=== PATIENT | male | born 1955 | race African-American/Black ===

== ENCOUNTER 2019-07-20 12:29 | Inpatient (IN) | payer MEDICARE, MEDICAID ==
[~2019-07-20] VITALS: Ht 188 cm; Wt 135.2 kg
[~2019-07-20 12:29] MED LIST: ALBU90AE INH; ASPI-1160 PO; LOSA25TA3 PO; METO-385 MT
[2019-07-20] MEDS ORDERED: ACETAMINOPHEN 325MG TABLET PO STA (15:14)
[2019-07-20 16:42] LABS: BASOPHILS % 0.7 % (0.0-2.0); EOSINOPHILS % 4.8 % (0.0-5.0); HEMATOCRIT. 39.4 % (42.0-52.0); HEMOGLOBIN. 13.3 g/dL (14.0-18.0); LYMPHOCYTES % 29.7 % (20.0-50.0); MEAN CORPUSCULAR HEMOGLOBIN 30.4 pg (28.0-32.0); MEAN CORPUSCULAR VOLUME 89.8 fL (80.0-94.0); MEAN PLATELET VOLUME 8.6 fl (7.4-10.4); MONOCYTES % 9.4 % (2.0-8.0); NEUTROPHILS % 55.4 % (40.0-76.0); PLATELET 300 x1000/uL (130-400); RED BLOOD CELL COUNT 4.39 mill/uL (4.7-6.1); RED CELL DISTRIBUTION WIDTH 13.7 % (11.6-14.6)
[2019-07-20 16:43] LABS: CHLORIDE 115 mEq/L (98-107)
[2019-07-20 16:46] LABS: ETHANOL BLOOD < 10 mg/dL
[2019-07-20 16:48] LABS: D-DIMER 0.29 mg/L FEU (<0.50); PARTIAL THROMBOPLASTIN TIME 28.6 sec (23.4-31.0); PROTHROMBIN TIME 10.4 sec (9.6-11.0)
[2019-07-20 16:57] LABS: CLARITY URINE CLEAR (CLEAR); COLOR URINE YELLOW (YELLOW); KETONES URINE NEGATIVE (NEGATIVE); LEUKOCYTE ESTERASE URINE NEGATIVE (NEGATIVE); NITRITE URINE NEGATIVE (NEGATIVE); OCCULT BLOOD URINE 1+ (NEGATIVE); PROTEIN URINE NEGATIVE (NEGATIVE); SPECIFIC GRAVITY URINE 1.007 (1.005-1.030); UROBILINOGEN URINE 0.2 E.U./dL (0.2-1.0)
[2019-07-20] MEDS ORDERED: ASPIRIN 81MG TABLET PO ONE (17:00)
[2019-07-20] MEDS ORDERED: NITROGLYCERIN 0.4MG TABLET SL SL PRN (17:00)
[2019-07-20 17:16] LABS: CANNABINOID URINE SCREEN NEGATIVE (NEGATIVE); PHENCYCLIDINE URINE SCREEN NEGATIVE (NEGATIVE)
[2019-07-20 17:17] LABS: *AMPHETAMINES SCREEN URINE NEGATIVE (NEGATIVE); *BARBITURATES SCREEN URINE NEGATIVE (NEGATIVE); *BENZODIAZEPINES SCREEN URINE NEGATIVE (NEGATIVE); *COCAINE SCREEN URINE PRESUMTIVE POSITIVE (NEGATIVE); METHADONE URINE SCREEN NEGATIVE (NEGATIVE)
[2019-07-20 17:18] LABS: OPIATES URINE SCREEN NEGATIVE (NEGATIVE)
[2019-07-20] MEDS ORDERED: IBUPROFEN 600MG TABLET PO PRN (19:15)
[2019-07-20] MEDS ORDERED: IPRATROPIUM/ALBUTEROL 0.5-3(2.5)MG/3ML NEB HHN PRN (20:45)
[2019-07-20] MEDS ORDERED: ONDANSETRON HCL 4MG/2ML INJ IV PRN (20:45)
[2019-07-20] MEDS ORDERED: GUAIFENESIN 200MG/10ML SUGAR FREE UDC PO PRN (20:45)
[2019-07-20] MEDS ORDERED: ACETAMINOPHEN 325MG TABLET PO PRN (20:45)
[2019-07-20] MEDS ORDERED: DIPHENHYDRAMINE 50MG/ML VIAL IV PRN (20:45)
[2019-07-21] MEDS ORDERED: DEXTROSE 50% WATER 50ML SYRINGE IV PRN (03:45)
[2019-07-21 04:00] VITALS: BP 166/89
[2019-07-21] MEDS: CLONIDINE 0.1MG TABLET PO PRN (04:41)
[2019-07-21] MEDS: BLOOD SUGAR DIAGNOSTIC STRIP TEST SCH ×4 (06:04→21:40)
[2019-07-21] MEDS: INSULIN LISPRO 100 UNITS/ML SUBCUT SCH ×4 (06:57→21:00)
[2019-07-21 07:58] VITALS: BP 135/85
[2019-07-21] MEDS: ENOXAPARIN 30MG/0.3ML SYR SUBCUT SCH ×2 (08:44→21:44)
[2019-07-21 10:22] LABS: BASOPHILS % 0.9 % (0.0-2.0); EOSINOPHILS % 4.9 % (0.0-5.0); HEMATOCRIT. 38.9 % (42.0-52.0); LYMPHOCYTES % 27.6 % (20.0-50.0); MEAN CORPUSCULAR HEMOGLOBIN 30.5 pg (28.0-32.0); MEAN CORPUSCULAR VOLUME 91.2 fL (80.0-94.0); MEAN PLATELET VOLUME 8.8 fl (7.4-10.4); MONOCYTES % 11.3 % (2.0-8.0); NEUTROPHILS % 55.3 % (40.0-76.0); PLATELET 271 x1000/uL (130-400); RED BLOOD CELL COUNT 4.26 mill/uL (4.7-6.1); RED CELL DISTRIBUTION WIDTH 13.8 % (11.6-14.6)
[2019-07-21] MEDS ORDERED: TAMS-11 MT (10:55)
[2019-07-21 12:00] VITALS: BP 140/77
[2019-07-21 12:50] LABS: CHLORIDE 114 mEq/L (98-107)
[2019-07-21 13:01] LABS: LDL CHOLESTEROL 90 mg/dL (5-100)
[2019-07-21 13:05] LABS: HDL CHOLESTEROL 40 mg/dL (40-59)
[2019-07-21 16:00] VITALS: BP 140/77
[2019-07-21 20:00] VITALS: BP 144/84
[2019-07-22] VITALS: BP 138/86
[2019-07-22 04:10] VITALS: BP 144/74
[2019-07-22] MEDS: BLOOD SUGAR DIAGNOSTIC STRIP TEST SCH ×2 (06:56→12:18)
[2019-07-22] MEDS: INSULIN LISPRO 100 UNITS/ML SUBCUT SCH ×2 (06:56→12:15)
[2019-07-22 08:00] VITALS: BP 157/82
[2019-07-22] MEDS: ENOXAPARIN 30MG/0.3ML SYR SUBCUT SCH ×3 (08:45→21:06)
[2019-07-22] MEDS: TAMSULOSIN HCL 0.4MG SR CAPSULE PO SCH (08:45)
[2019-07-22] MEDS: LOSARTAN POTASSIUM 25 MG TABLET PO SCH (08:45)
[2019-07-22] MEDS: ASPIRIN 81MG TABLET PO SCH (08:45)
[2019-07-22 12:00] VITALS: BP 136/89
[2019-07-22] MEDS ORDERED: IPRATROPIUM/ALBUTEROL 0.5-3(2.5)MG/3ML NEB HHN PRN (14:00)
[2019-07-22 15:50] VITALS: BP 154/99
[2019-07-22] MEDS: CLONIDINE 0.1MG TABLET PO PRN (16:47)
[2019-07-22 20:00] VITALS: BP 118/65
[2019-07-23] VITALS: BP 122/54
[2019-07-23 04:00] VITALS: BP 132/56
[2019-07-23] MEDS: IPRATROPIUM/ALBUTEROL 0.5-3(2.5)MG/3ML NEB HHN SCH ×4 (06:27→21:02)
[2019-07-23 08:00] VITALS: BP 154/84
[2019-07-23 08:17] LABS: BASOPHILS % 1.1 % (0.0-2.0); EOSINOPHILS % 4.8 % (0.0-5.0); HEMATOCRIT. 38.1 % (42.0-52.0); HEMOGLOBIN. 12.9 g/dL (14.0-18.0); LYMPHOCYTES % 28.3 % (20.0-50.0); MEAN CORPUSCULAR HEMOGLOBIN 30.3 pg (28.0-32.0); MEAN CORPUSCULAR VOLUME 89.5 fL (80.0-94.0); MEAN PLATELET VOLUME 8.6 fl (7.4-10.4); MONOCYTES % 11.8 % (2.0-8.0); PLATELET 273 x1000/uL (130-400); RED BLOOD CELL COUNT 4.26 mill/uL (4.7-6.1); RED CELL DISTRIBUTION WIDTH 13.6 % (11.6-14.6)
[2019-07-23 08:36] LABS: CHLORIDE 111 mEq/L (98-107)
[2019-07-23] MEDS: ENOXAPARIN 30MG/0.3ML SYR SUBCUT SCH ×3 (09:00→20:32)
[2019-07-23] MEDS: BUDESONIDE 0.5MG/2ML NEB HHN SCH ×3 (09:36→21:01)
[2019-07-23] MEDS: ASPIRIN 81MG TABLET PO SCH (10:29)
[2019-07-23] MEDS: TAMSULOSIN HCL 0.4MG SR CAPSULE PO SCH (10:29)
[2019-07-23] MEDS: LOSARTAN POTASSIUM 25 MG TABLET PO SCH (10:30)
[2019-07-23 12:00] VITALS: BP 166/83
[2019-07-23] MEDS: CLONIDINE 0.1MG TABLET PO PRN (15:54)
[2019-07-23 16:00] VITALS: BP 146/85
[2019-07-23 20:00] VITALS: BP 119/58
[2019-07-24] VITALS: BP 125/64
[2019-07-24 04:00] VITALS: BP 155/85
[2019-07-24 07:03] LABS: BASOPHILS % 0.9 % (0.0-2.0); EOSINOPHILS % 3.3 % (0.0-5.0); HEMATOCRIT. 36.4 % (42.0-52.0); HEMOGLOBIN. 12.5 g/dL (14.0-18.0); MEAN CORPUSCULAR HEMOGLOBIN 30.6 pg (28.0-32.0); MEAN CORPUSCULAR VOLUME 89.4 fL (80.0-94.0); MEAN PLATELET VOLUME 8.7 fl (7.4-10.4); MONOCYTES % 11.9 % (2.0-8.0); NEUTROPHILS % 60.9 % (40.0-76.0); PLATELET 270 x1000/uL (130-400); RED BLOOD CELL COUNT 4.08 mill/uL (4.7-6.1); RED CELL DISTRIBUTION WIDTH 13.6 % (11.6-14.6)
[2019-07-24 07:31] LABS: CHLORIDE 113 mEq/L (98-107)
[2019-07-24 08:00] VITALS: BP 152/77
[2019-07-24] MEDS: IPRATROPIUM/ALBUTEROL 0.5-3(2.5)MG/3ML NEB HHN SCH ×3 (08:00→20:25)
[2019-07-24] MEDS: LOSARTAN POTASSIUM 25 MG TABLET PO SCH (08:13)
[2019-07-24] MEDS: ASPIRIN 81MG TABLET PO SCH (08:13)
[2019-07-24] MEDS: TAMSULOSIN HCL 0.4MG SR CAPSULE PO SCH ×2 (08:13→08:18)
[2019-07-24] MEDS: ENOXAPARIN 30MG/0.3ML SYR SUBCUT SCH (08:14)
[2019-07-24 12:00] VITALS: BP 140/84
[2019-07-24 16:06] VITALS: BP 138/65
[2019-07-24 20:00] VITALS: BP 149/96
[2019-07-24] MEDS: ENOXAPARIN 40MG/0.4ML SYR SUBCUT SCH (20:01)
[2019-07-24] MEDS: BUDESONIDE 0.5MG/2ML NEB HHN SCH (22:07)
[2019-07-24] MEDS ORDERED: ASPIRIN 81MG TABLET PO ONE (23:15)
[2019-07-25] VITALS: BP 134/73
[2019-07-25 04:00] VITALS: BP 146/80
[2019-07-25 08:00] VITALS: BP 156/84
[2019-07-25] MEDS: BUDESONIDE 0.5MG/2ML NEB HHN SCH (08:47)
[2019-07-25] MEDS: IPRATROPIUM/ALBUTEROL 0.5-3(2.5)MG/3ML NEB HHN SCH ×2 (08:47→15:12)
[2019-07-25] MEDS: TAMSULOSIN HCL 0.4MG SR CAPSULE PO SCH (09:10)
[2019-07-25] MEDS: LOSARTAN POTASSIUM 25 MG TABLET PO SCH (09:11)
[2019-07-25] MEDS: ASPIRIN 81MG TABLET PO SCH (09:11)
[2019-07-25] MEDS: ENOXAPARIN 40MG/0.4ML SYR SUBCUT SCH ×2 (09:11→09:12)
[2019-07-25 12:00] VITALS: BP 135/69
[2019-07-25 16:00] VITALS: BP 129/75
[2019-07-25 20:00] VITALS: BP 161/95
[2019-07-25] MEDS: CLONIDINE 0.1MG TABLET PO PRN (21:38)
[2019-07-26] VITALS: BP 153/66
[2019-07-26 04:00] VITALS: BP 155/74
[2019-07-26] MEDS: LOSARTAN POTASSIUM 25 MG TABLET PO SCH (08:45)
[2019-07-26] MEDS: ASPIRIN 81MG TABLET PO SCH (08:45)
[2019-07-26] MEDS: TAMSULOSIN HCL 0.4MG SR CAPSULE PO SCH (08:45)
[2019-07-26] MEDS: KETOROLAC 15MG/ML VIAL IV PRN (08:54)
[2019-07-26 12:00] VITALS: BP 146/83
[2019-07-26 16:00] VITALS: BP 119/94
[2019-07-26 20:00] VITALS: BP 150/69
[2019-07-27] VITALS: BP 148/79
[2019-07-27 08:00] VITALS: BP 171/82
[2019-07-27] MEDS: TAMSULOSIN HCL 0.4MG SR CAPSULE PO SCH (08:52)
[2019-07-27] MEDS: ASPIRIN 81MG TABLET PO SCH (08:52)
[2019-07-27] MEDS: LOSARTAN POTASSIUM 25 MG TABLET PO SCH (08:52)
[2019-07-27 12:00] VITALS: BP 160/84
[2019-07-27 16:00] VITALS: BP 136/75
[2019-07-27 20:00] VITALS: BP 135/64
[2019-07-28] VITALS: BP 144/63
[2019-07-28 04:00] VITALS: BP 129/73
[2019-07-28 08:00] VITALS: BP 150/57
[2019-07-28] MEDS: ASPIRIN 81MG TABLET PO SCH (08:57)
[2019-07-28] MEDS: KETOROLAC 15MG/ML VIAL IV PRN (08:57)
[2019-07-28] MEDS: LOSARTAN POTASSIUM 25 MG TABLET PO SCH (08:57)
[2019-07-28] MEDS: TAMSULOSIN HCL 0.4MG SR CAPSULE PO SCH (08:57)
[2019-07-28 12:00] VITALS: BP 131/87
[2019-07-28 14:12] VITALS: BP 131/87
== END 2019-07-28 15:20 | disposition home or self-care (01) | DRG 917 ==
LOC: ER 12:29 → ENRESERV 07-21 03:25 → 5WST 07-21 04:10
PROVIDERS: ADMIT Internal Medicine; ATTEND Internal Medicine
DX: T59.891A Toxic effect of other specified gases, fumes and vapors, accidental (unintentional), initial encounter (principal); J96.00 Acute respiratory failure, unspecified whether with hypoxia or hypercapnia; J68.0 Bronchitis and pneumonitis due to chemicals, gases, fumes and vapors; I42.9 Cardiomyopathy, unspecified; I24.9 Acute ischemic heart disease, unspecified; E66.9 Obesity, unspecified; E78.5 Hyperlipidemia, unspecified; I12.9 Hypertensive chronic kidney disease with stage 1 through stage 4 chronic kidney disease, or unspecified chronic kidney disease; N18.9 Chronic kidney disease, unspecified; R04.0 Epistaxis; F14.10 Cocaine abuse, uncomplicated; M19.90 Unspecified osteoarthritis, unspecified site; N40.0 Benign prostatic hyperplasia without lower urinary tract symptoms; Z87.891 Personal history of nicotine dependence; Z88.6 Allergy status to analgesic agent; Z79.899 Other long term (current) drug therapy; Z71.51 Drug abuse counseling and surveillance of drug abuser; Z68.38 Body mass index [BMI] 38.0-38.9, adult; Y92.89 Other specified places as the place of occurrence of the external cause
CPT/HCPCS: 36415; 71046; 80048; 80053; 80061; 80305; 80320; 81003; 82962; 83036; 83735; 83880; 84100; 84443; 84484; 85025; 85379; 93005; 93306; 93970; 94640; 96372; 99285; J1650; J1885; J7626; G0480